=== PATIENT | male | born 1945 | race Caucasian/White ===

== ENCOUNTER 2022-01-31 08:42 | Emergency (ER) | payer MEDICARE, BC ==
[~2022-01-31] VITALS: Ht 182.9 cm; Wt 104.5 kg
[2022-01-31 09:16] LABS: BASOPHILS % (AUTO) 0.6 % (0-1); EOSINOPHILS # (AUTO) 0.3 X10'3 (0-0.9); EOSINOPHILS % (AUTO) 5.9 % (0-6); HEMOGLOBIN 15.4 g/dl (14.0-17.9); LYMPHOCYTES # (AUTO) 1.3 X10'3 (1.1-4.8); LYMPHOCYTES % (AUTO) 26.7 % (21-51); MEAN CORPUSCULAR HEMOGLOBIN 31.6 PG (27.0-31.0); MEAN CORPUSCULAR HGB CONC 34.1 g/dL (33.0-36.5); MEAN CORPUSCULAR VOLUME 92.8 FL (78-98); MEAN PLATELET VOLUME 8.9 FL (7.4-10.4); MONOCYTES # (AUTO) 0.5 X10'3 (0-0.9); MONOCYTES % (AUTO) 10.3 % (2-12); NEUTROPHILS # (AUTO) 2.8 X10'3 (1.8-7.7); NEUTROPHILS % (AUTO) 56.5 % (42-75); PLATELET COUNT 172 X10'3 (140-440); RED BLOOD COUNT 4.85 X10'6 (4.70-6.10); RED CELL DISTRIBUTION WIDTH 13.6 % (11.5-14.5)
[2022-01-31 09:30] LABS: ALANINE AMINOTRANSFERASE 33 U/L (12-78); ALBUMIN 3.7 G/DL (3.4-5.0); ALBUMIN/GLOBULIN RATIO 1.1 (1.1-1.5); ALKALINE PHOSPHATASE 92 IU/L (46-116); ANION GAP 7 (8-16); ASPARTATE AMINO TRANSFERASE 23 U/L (10-37); BILIRUBIN,TOTAL 0.7 MG/DL (0.1-1.0); BLOOD UREA NITROGEN 17 MG/DL (7-18); BUN/CREATININE RATIO 13.9 (5.4-32.0); CALCIUM 8.7 MG/DL (8.5-10.1); CHLORIDE 110 MMOL/L (99-107); CREATININE 1.22 MG/DL (0.60-1.10); GLUCOSE 109 MG/DL (70-104); POTASSIUM 3.9 MMOL/L (3.5-5.1); SODIUM 142 MMOL/L (135-145); TOTAL CARBON DIOXIDE 25.2 MMOL/L (24-32); eGFR 58 ML/MIN
[2022-01-31] MEDS ORDERED: magnesium 2GM in 50ml NS 50 ML IV ONE (09:35)
[2022-01-31] MEDS ORDERED: normal saline 1000ML IV soln IVB ONE (09:35)
[2022-01-31] MEDS ORDERED: ondansetron/PF 4mg/2ml inj IV ONE (09:35)
[2022-01-31] MEDS ORDERED: cloNIDine 0.1 mg tablet PO ONE (09:40)
[2022-01-31] MEDS ORDERED: dexamethasone sod phosphate 10mg/ml inj IV STA (10:28)
[2022-01-31] MEDS ORDERED: MECL-159 PO (10:32)
[2022-01-31] MEDS ORDERED: meclizine 12.5mg tablet PO ONE (10:35)
[2022-01-31 12:27] VITALS: BP 128/69
== END 2022-01-31 12:29 | disposition home or self-care (01) ==
LOC: ER 08:43
DX: R42 Dizziness and giddiness (principal); R51.9 Headache, unspecified; I48.91 Unspecified atrial fibrillation; Z79.899 Other long term (current) drug therapy
CPT/HCPCS: 36415; 70450; 71045; 80053; 83880; 84484; 85025; 93005; 96365; 96375; 99285; J1100; J2405; J3475; J7030; J8597